=== PATIENT | male | born 1995 | race Two or more races ===

== ENCOUNTER 2020-08-06 00:12 | Emergency (ER) | payer OTHER ==
[~2020-08-06] VITALS: Ht 177.8 cm; Wt 71.9 kg
[2020-08-06 00:14] VITALS: BP 127/91
--- NOTE | 2020-08-06 02:21 | NUR ---
NIL X 1 WHEN CALLED FOR ROOM.
[2020-08-06] MEDS ORDERED: ONDANSETRON ODT 8 MG PO ONE (02:30)
--- NOTE | 2020-08-06 02:47 | NUR ---
NIL X 2 WHEN CALLED FOR ROOM.
--- NOTE | 2020-08-06 03:21 | NUR ---
NIL X 3 WHEN CALLED FOR ROOM.
== END 2020-08-06 03:22 | disposition left against medical advice (07) ==
LOC: ED 03:00
DX: R11.2 Nausea with vomiting, unspecified (principal); R19.7 Diarrhea, unspecified
CPT/HCPCS: 99281

== ENCOUNTER 2020-08-06 04:23 | Emergency (ER) | payer OTHER ==
[~2020-08-06] VITALS: Ht 177.8 cm; Wt 71.3 kg
[2020-08-06] MEDS ORDERED: ONDANSETRON ODT 4 MG ONE (04:51)
[2020-08-06 04:59] VITALS: BP 142/76
[2020-08-06] MEDS ORDERED: ONDANSETRON ODT 4 MG PO ONE (05:00)
[2020-08-06 05:07] LABS: BASOPHILS % (AUTO) 0 % (0-1); EOSINOPHILS % (AUTO) 0 % (1-7); LYMPHOCYTES % (AUTO) 3 % (22-44); MEAN CORPUSCULAR HEMOGLOBIN 31.5 pg (27.5-34.5); MEAN CORPUSCULAR HGB CONC 34.9 g/dL (33.2-36.2); MEAN PLATELET VOLUME 8.4 fL (7.4-10.4); MONOCYTES % (AUTO) 3 % (2-9); NEUTROPHILS % (AUTO) 94 % (42-75); PLATELET COUNT 223 x10^3/uL (130-400); RED BLOOD COUNT 5.74 x10^6/uL (4.38-5.82); RED CELL DISTRIBUTION WIDTH 13.2 % (9.4-14.8)
[2020-08-06 05:15] LABS: ALBUMIN 4.5 g/dL (3.4-5.0); ANION GAP 10 mmol/L (5-15); CALCIUM 9.4 mg/dL (8.5-10.1); CHLORIDE 106 mmol/L (98-107)
[2020-08-06 05:19] LABS: ALANINE AMINOTRANSFERASE 70 U/L (12-78); ALKALINE PHOSPHATASE 166 U/L (45-117); BILIRUBIN,TOTAL 1.1 mg/dL (0.2-1.0); CREATININE 0.86 mg/dL (0.7-1.3); TOTAL PROTEIN 8.9 g/dL (6.4-8.2)
[2020-08-06] MEDS ORDERED: PROMETHAZINE 25 MG/ML, 1ML ONE (05:50)
[2020-08-06] MEDS ORDERED: PROMETHAZINE 25 MG/ML, 1ML IM ONE (06:00)
== END 2020-08-06 06:17 | disposition home or self-care (01) ==
LOC: ED 05:29
DX: R11.2 Nausea with vomiting, unspecified (principal); R19.7 Diarrhea, unspecified; M79.10 Myalgia, unspecified site
CPT/HCPCS: 36415; 80053; 83690; 85025; 96372; 99283; J2550; Q0162; 99284